=== PATIENT | female | born 1965 | race Hispanic/Latino ===

== ENCOUNTER → 2018-02-28 | Day surgery (SDC) | payer OTHER ==
[~2018-02-28] MED LIST: BACLOFEN10 MG PO; BIOTIN2500 MCG PO; DEXILANT60 MG PO; FENTANYL CITRATE/PF 100MCG/2 ML INJ ONE; HYDROCHLOROTHIA25 MG PO; HYOSCYAMINE SULFATE 0.5 MG/ML AMP ONE; IBUPROFEN400 MG PO; LIALDA1.2 GM PO; LOSARTAN POTASS25 MG PO; LOVASTATIN20 MG PO; MELOXICAM7.5 MG PO; METOPROLOL TART50 MG PO; MIDAZOLAM HCL 2 MG/2 ML VIAL ONE; NORCO 10-325 T1 EACH PO; OTEZLA PO; PROPOFOL IV EMULSION 10 MG/ML 50 ML VIAL ONE; SIMETHICONE 40 MG/0.6 ML BTL ONE; VITAMIN D32000 UNIT PO; [UNRECOGNIZED DRUG - OTHER] TOP
--- NOTE | 2018-02-28 12:20 | Operative Report ---
DATE OF PROCEDURE: February 28, 2018 REFERRING PHYSICIAN: Dr. Sky Malik PROCEDURE PERFORMED: Esophagogastroduodenoscopy with biopsies and colonoscopy with polypectomy. INDICATIONS FOR ESOPHAGOGASTRODUODENOSCOPY: Heartburn, indigestion. INDICATIONS FOR COLONOSCOPY: Colorectal cancer screening. MEDICATION: Patient was done under MAC. Please see anesthesiologist's note. PROCEDURE: With patient in left lateral decubitus position, flexible fiberoptic Olympus gastroscope was introduced into the esophagus under direct visualization without any difficulty. There was some patchy erythema noted in distal esophagus. A minute tongue of velvety red mucosa was noted to extend proximally from the GE junction that was biopsied to rule out Cole's. The scope was then advanced with ease into the stomach and patient appears to have had a gastric sleeve. The mucosa overlying the antrum and the body revealed some patchy intense erythema and low-grade to moderate edema and biopsies were obtained and sent to stain for H. pylori. Pylorus appeared to be of normal contour and shape, was intubated with ease and the scope was advanced all the way to the 2nd portion of the duodenum. The scope was then withdrawn slowly. Mucosa overlying the proximal 2nd portion and the duodenal bulb appeared to be within normal limits. The scope was then withdrawn back into the stomach and retroflexed and the mucosa overlying the cardia and the fundus appeared to be within normal limits. The scope was then straightened out, it was subsequently withdrawn. Patient tolerated procedure well. IMPRESSION 1. Distal esophagitis. 2. Rule out Cole's esophagus. 3. Status post gastric sleeve. 4. Gastritis biopsied. Biopsies sent to stain for H. pylori. PLAN: Follow up histology. Initiate Protonix 40 mg 1 p.o. q.a.m. a.c. Patient was then turned around. After adequate lubrication of the anal canal a flexible fiberoptic Olympus colonoscope was inserted into the rectum with ease, advanced all the way to the cecum. A minute polyp was hot biopsied from the cecum. The scope was then withdrawn slowly and 1 polyp was snared from the ascending colon. The rest of the ascending and the transverse appeared to be within normal limits. Diverticular disease was noted to involve the distal descending and sigmoid colon. The rectum grossly appeared to be within normal limits. The scope was then retroflexed into the distal rectum and small internal hemorrhoids were noted, none of which was actively bleeding. The scope was then straightened out. The rectosigmoid area as well as the distal rectal area were decompressed. The scope was subsequently withdrawn. Patient tolerated the procedure well. IMPRESSION 1. Cecal polyp hot biopsied. 2. Ascending colon polyps snared. 3. Diverticulosis. 4. Internal hemorrhoids, none actively bleeding. PLAN: Follow up histology. Initiate high-fiber low-fat diet. Initiate high-fiber supplement. Patient will need a followup colonoscopy in 3 years. Job#: [id number] DG cc:ELANA MALIK DO
== END | disposition home or self-care (01) ==
LOC: ENDO 07:42
PROVIDERS: ATTEND Internal Medicine Gastroenterology
DX: Z12.11 Encounter for screening for malignant neoplasm of colon (principal); D12.0 Benign neoplasm of cecum; D12.2 Benign neoplasm of ascending colon; K29.70 Gastritis, unspecified, without bleeding; K20.9 Esophagitis, unspecified; K21.9 Gastro-esophageal reflux disease without esophagitis; Z98.84 Bariatric surgery status; K57.30 Diverticulosis of large intestine without perforation or abscess without bleeding; K64.8 Other hemorrhoids; I45.10 Unspecified right bundle-branch block; I10 Essential (primary) hypertension; R79.9 Abnormal finding of blood chemistry, unspecified; D69.6 Thrombocytopenia, unspecified; F17.210 Nicotine dependence, cigarettes, uncomplicated; Z51.89 Encounter for other specified aftercare; Z01.810 Encounter for preprocedural cardiovascular examination; Z68.28 Body mass index [BMI] 28.0-28.9, adult
CPT/HCPCS: 43239; 45384; 45385; 93005; J1980; J2250; 45378

== ENCOUNTER 2018-04-04 11:00 | Outpatient (RCR) | payer MEDICARE, OTHER ==
[~2018-04-04 11:00] MED LIST changes: -FENTANYL CITRATE/PF 100MCG/2 ML INJ ONE; -HYOSCYAMINE SULFATE 0.5 MG/ML AMP ONE; -MIDAZOLAM HCL 2 MG/2 ML VIAL ONE; -PROPOFOL IV EMULSION 10 MG/ML 50 ML VIAL ONE; -SIMETHICONE 40 MG/0.6 ML BTL ONE
== END 2018-04-05 ==
LOC: PT 11:00
PROVIDERS: ATTEND Specialist
DX: M17.11 Unilateral primary osteoarthritis, right knee (principal)
CPT/HCPCS: 97110 ×4; 97162; G8978; G8979

== ENCOUNTER 2018-04-28 09:59 | Outpatient (RCR) | payer MEDICARE, OTHER | END 2018-05-06 | LOC: PT 09:59 | PROVIDERS: ATTEND Specialist | DX: M17.11 Unilateral primary osteoarthritis, right knee (principal); M25.561 Pain in right knee; M25.461 Effusion, right knee; M62.81 Muscle weakness (generalized) | CPT/HCPCS: 97110 ×3; 97139 ×2; G8978; G8979 ==

== ENCOUNTER → 2018-05-05 | Outpatient (CLI) | payer MEDICARE, OTHER ==
--- NOTE | 2018-05-06 08:52 | Diagnostic Imaging Report ---
TECHNIQUE: Magnetic resonance imaging of the LEFT WRIST was performed WITHOUT injected contrast, on a 1.5 nallely magnet. HISTORY: Nondisplaced fracture, fall COMPARISON: None available. FINDINGS: Bone and bone marrow: An irregular curvilinear hypointense line involving the distal radial epiphysis with intra-articular extension and prominent adjacent bone marrow edema. Mild scattered subchondral degenerative cystic changes and bone marrow edema, most notably adjacent to the first carpometacarpal joint. Joints: Mild polyarticular synovitis and trace effusions involving the carpal, radiocarpal and distal radioulnar joints. Scattered degenerative changes, most notably severe of the first carpometacarpal joint. Ligaments: Scapholunate: Intact Lunotriquetral: Intact Triangular fibrocartilage complex: Intact Extrinsic ligaments: Intact Tendons: The flexor and extensor tendons are intact. Carpal tunnel: The median nerve is within normal limits. Other soft tissues: Moderate regional edema about the distal radius. IMPRESSION: 1. Acute to subacute intra-articular fracture involving the distal radius. 2. Severe osteoarthrosis of the first carpometacarpal joint. Signed by: Dr. Harrison Fowler D.O., M.M.M. on 05/06/2018 7:51 AM
== END ==
LOC: MRI 05-04 09:16
PROVIDERS: ATTEND Specialist
DX: S62.025A Nondisplaced fracture of middle third of navicular [scaphoid] bone of left wrist, initial encounter for closed fracture (principal)

== ENCOUNTER 2018-06-27 09:12 | Outpatient (RCR) | payer MEDICARE, OTHER | END 2018-07-06 | LOC: OT 09:12 | PROVIDERS: ATTEND Specialist | DX: S52.502D Unspecified fracture of the lower end of left radius, subsequent encounter for closed fracture with routine healing (principal); M25.532 Pain in left wrist; M25.632 Stiffness of left wrist, not elsewhere classified ==

== ENCOUNTER → 2021-09-02 | Outpatient (CLI) | payer MEDICARE, OTHER | LOC: MAMMO 12:25 | PROVIDERS: ATTEND Family Medicine | DX: Z12.31 Encounter for screening mammogram for malignant neoplasm of breast (principal) | CPT/HCPCS: 77067 ==

== ENCOUNTER 2021-12-03 10:00 | Outpatient (RCR) | payer MEDICARE, OTHER | END 2021-12-04 | LOC: PT 10:00 | PROVIDERS: ATTEND Orthopaedic Surgery | DX: M17.11 Unilateral primary osteoarthritis, right knee (principal); Z47.1 Aftercare following joint replacement surgery; Z96.651 Presence of right artificial knee joint; M25.561 Pain in right knee; M25.461 Effusion, right knee; M25.471 Effusion, right ankle; M25.661 Stiffness of right knee, not elsewhere classified; R53.1 Weakness; R26.89 Other abnormalities of gait and mobility; R26.2 Difficulty in walking, not elsewhere classified ==

== ENCOUNTER 2022-01-02 10:00 | Outpatient (RCR) | payer MEDICARE, OTHER | END 2022-01-03 | LOC: PT 10:00 | PROVIDERS: ATTEND Orthopaedic Surgery | DX: M17.11 Unilateral primary osteoarthritis, right knee (principal); Z96.651 Presence of right artificial knee joint; Z47.1 Aftercare following joint replacement surgery; M25.561 Pain in right knee; M25.461 Effusion, right knee; M25.471 Effusion, right ankle; M25.661 Stiffness of right knee, not elsewhere classified; R53.1 Weakness; R26.89 Other abnormalities of gait and mobility; R26.2 Difficulty in walking, not elsewhere classified | CPT/HCPCS: 97139 ==

== ENCOUNTER → 2022-02-03 | Outpatient (RCR) | payer MEDICARE, OTHER | LOC: PT 01-08 11:07 | PROVIDERS: ATTEND Orthopaedic Surgery | DX: Z96.651 Presence of right artificial knee joint (principal); M17.11 Unilateral primary osteoarthritis, right knee; M25.561 Pain in right knee; R26.89 Other abnormalities of gait and mobility; R26.2 Difficulty in walking, not elsewhere classified | CPT/HCPCS: 97139 ==

== ENCOUNTER 2022-02-10 11:03 | Outpatient (RCR) | payer MEDICARE, OTHER | END 2022-03-05 | LOC: PT 11:03 | PROVIDERS: ATTEND Orthopaedic Surgery | DX: Z96.651 Presence of right artificial knee joint (principal); M17.11 Unilateral primary osteoarthritis, right knee; M25.561 Pain in right knee; R26.89 Other abnormalities of gait and mobility; R26.2 Difficulty in walking, not elsewhere classified ==

== ENCOUNTER → 2022-06-08 | Outpatient (CLI) | payer MEDICARE, OTHER | LOC: MAMMO 09:01 | PROVIDERS: ATTEND Family Medicine | DX: Z12.31 Encounter for screening mammogram for malignant neoplasm of breast (principal); Z13.820 Encounter for screening for osteoporosis | CPT/HCPCS: 77067; 77080 ==

== ENCOUNTER 2022-10-05 13:24 | Outpatient (RCR) | payer MEDICARE, OTHER ==
[~2022-10-05 13:24] MED LIST changes: +CLOPIDOGREL75 MG PO; +COSENTYX P150 MG/11 SQ; +HYDROCODON-ACE1 EA12 PO; +NEURONTIN400 MG PO
== END 2022-10-06 ==
LOC: PT 13:24
PROVIDERS: ATTEND Neurological Surgery
DX: M48.062 Spinal stenosis, lumbar region with neurogenic claudication (principal)

== ENCOUNTER 2022-10-27 11:00 | Outpatient (RCR) | payer MEDICARE, OTHER | END 2022-11-03 | LOC: PT 11:00 | PROVIDERS: ATTEND Neurological Surgery | DX: M48.062 Spinal stenosis, lumbar region with neurogenic claudication (principal) ==

== ENCOUNTER 2022-11-10 10:59 | Outpatient (RCR) | payer MEDICARE, OTHER | END 2022-12-04 | LOC: PT 10:59 | PROVIDERS: ATTEND Neurological Surgery | DX: M48.062 Spinal stenosis, lumbar region with neurogenic claudication (principal) ==

== ENCOUNTER 2022-12-14 09:57 | Outpatient (RCR) | payer MEDICARE | END 2023-01-03 | LOC: OT 09:57 | PROVIDERS: ATTEND Orthopaedic Surgery Hand Surgery | DX: G56.01 Carpal tunnel syndrome, right upper limb (principal) ==

== ENCOUNTER 2023-01-14 10:52 | Outpatient (RCR) | payer MEDICARE | END 2023-02-03 | LOC: OT 10:52 | PROVIDERS: ATTEND Orthopaedic Surgery Hand Surgery | DX: G56.01 Carpal tunnel syndrome, right upper limb (principal) ==

== ENCOUNTER → 2023-09-16 | Day surgery (SDC) | payer MEDICARE, OTHER ==
[~2023-09-16] MED LIST changes: +ATORVASTATIN CA40 MG PO; +CELEBREX200 MG PO; +CYCLOBENZAPRINE10 MG PO; +CYMBALTA20 MG PO; +DIGOXIN125 MCG PO; +ENTRESTO 24 MG1 EACH PO; +FAMOTIDINE20 MG PO; +FENTANYL CITRATE/PF 100MCG/2 ML INJ ONE; +FUROSEMIDE40 MG PO; +HYOSCYAMINE SULFATE 0.5 MG/ML INJ ONE; +LACTATED RINGER'S 1,000 ML ONE; +MAGNESIUM OXID400 MG PO; +METHOCARBAMOL750 MG PO; +METOCLOPRAMIDE HCL 10 MG/2ML VIAL ONE; +MIDAZOLAM HCL 2 MG/2 ML VIAL ONE; +PROPOFOL IV EMULSION 10 MG/ML 20 ML VIAL ONE; +PROPOFOL IV EMULSION 10 MG/ML 50 ML VIAL IV ONE; +SPIRONOLACTONE25 MG PO; +VITAMIN B-1100 MG PO
[2023-09-16 11:50] VITALS: BP 120/79; PULSE 89; RESP 17; TEMP 97.6; O2SAT 97
== END | disposition home or self-care (01) ==
LOC: OR 08:27
PROVIDERS: ATTEND Internal Medicine Gastroenterology
DX: D64.89 Other specified anemias (principal); Z86.010 Personal history of colon polyps; K29.70 Gastritis, unspecified, without bleeding; K52.9 Noninfective gastroenteritis and colitis, unspecified; K20.90 Esophagitis, unspecified without bleeding; K21.9 Gastro-esophageal reflux disease without esophagitis; K44.9 Diaphragmatic hernia without obstruction or gangrene; Z98.84 Bariatric surgery status; K57.30 Diverticulosis of large intestine without perforation or abscess without bleeding; K62.89 Other specified diseases of anus and rectum; K59.00 Constipation, unspecified; K64.8 Other hemorrhoids; Z71.3 Dietary counseling and surveillance; E83.118 Other hemochromatosis; R77.2 Abnormality of alphafetoprotein; I10 Essential (primary) hypertension; E78.5 Hyperlipidemia, unspecified; F17.210 Nicotine dependence, cigarettes, uncomplicated; Z71.6 Tobacco abuse counseling; Z91.041 Radiographic dye allergy status; Z01.810 Encounter for preprocedural cardiovascular examination; Z79.02 Long term (current) use of antithrombotics/antiplatelets; Z79.899 Other long term (current) drug therapy; Z68.26 Body mass index [BMI] 26.0-26.9, adult; Z86.73 Personal history of transient ischemic attack (TIA), and cerebral infarction without residual deficits; Z80.0 Family history of malignant neoplasm of digestive organs
CPT/HCPCS: 43239; 45380; 93005; C9113; J1980; J2250; J2704 ×2; J2765; J3010; J7121; 45378